=== PATIENT | female | born 1985 | race Caucasian/White ===

== ENCOUNTER 2018-10-26 10:00 | Inpatient (IN) | payer OTHER ==
[2018-10-26 17:12] VITALS: BMI 37.7
[2018-10-26] MEDS ORDERED: Misoprostol 200 MCG TAB PR PRN (17:21)
[2018-10-26] MEDS ORDERED: Ibuprofen 800 MG TAB PO PRN (17:21)
[2018-10-26] MEDS ORDERED: Lidocaine 1% (PF) 30 ML VIAL SC PRN (17:21)
[2018-10-26] MEDS ORDERED: Promethazine HCl 25 MG/ML VIAL IM PRN ×2 (17:21→22:27)
[2018-10-26] MEDS ORDERED: Methylergonovine 0.2 MG/ML VIAL IM PRN (17:21)
[2018-10-26] MEDS ORDERED: NS / Oxytocin 40 units/1000ml 1,000 ML IV PRN (17:21)
[2018-10-26] MEDS ORDERED: Carboprost 250 MCG/ML AMP IM PRN (17:21)
[2018-10-26] MEDS ORDERED: Ondansetron PF 4 MG/2 ML Vial IVP PRN ×2 (17:21→22:27)
[2018-10-26] MEDS ORDERED: Meperidine HCl/PF 25 MG/ML VIAL IM/IV PRN (17:21)
[2018-10-26] MEDS ORDERED: Butorphanol Tartrate 1 MG/ML VIAL SLOW IVP PRN (17:21)
[2018-10-26] MEDS ORDERED: HYDROcodone/Acetaminophen 5/325 mg Tablet PO PRN (17:21)
[2018-10-26] MEDS ORDERED: Acetaminophen 500 MG TAB PO PRN (17:21)
--- NOTE | 2018-10-26 17:27 | PDOC.LDHP ---
Labor and Delivery H&P Chief complaint: scheduled induction, other (Cholestasis of , started itching a few days ago, elevated LFT and bile acids (27) on 10/23, resulted today. Decision to induce labor for cholestasis at more than 37 weeks gestation. Cervix favorable.) HPI: Seen in office today for routine OB f/u. Had labs earlier this week for itching of palms and soles. LFT and bile acids elevated. Good movement reported. No jaundice noticed. Itching persists. Current gestational age (weeks): 37 Due date: 11/12/18 Dating criteria: last menstrual period Grav: 3 Para: 2 Current complications: other (Cholestasis of at 37 weeks) Abnormal US findings: No Current medications: pre- vitamins Previous surgical history: none Allergies/Adverse Reactions: Allergies Allergy/AdvReac Type Severity Reaction Status Date / Time No Known Allergies Allergy Verified 10/26/18 17:12 Social history: none - Physical Exam Vital signs reviewed and normal: yes General: NAD, resting, breathing through contractions, other Heart: RRR Lungs: nonlabored breathing Abdomen: NTTP Extremeties: no edema FHT: category 1 - Vaginal Exam cm dilated: 3 Effacement: 75% Station: -1 - OB Labs Blood type: O RH: positive Antibody Screen: negative HIV: negative RPR: negative HEPSAg: negative 1 hour GCT: negative GBS: negative Urine drug screen: not done Rubella: immune - Assessment L&D Assessment: medically indicated induction - Plan Plan: admit to L&D, anesthesia consult for pain management (Pitocin for IOL. WIll AROM when gregg. Continuous monitoring. Repeat LFT now and after delivery.)
[2018-10-26] MEDS ORDERED: NS w/ Oxytocin 10 units 500 ML IV SCH (17:30)
[2018-10-26 18:39] LABS: Hemoglobin 11.9 g/dL (12.0-16.0); Mean Corpuscular HGB CONC 34.3 g/dL (32.0-36.0); Mean Corpuscular Volume 87.5 fL (78.0-98.0); Mean Platelet Volume 8.8 fL (7.4-10.4); Platelet Count 193 thou/uL (130-400); RBC Distribution Width 12.4 % (11.5-14.5); Red Blood Cell (RBC) Count 3.97 mill/uL (4.20-5.40); White Blood Cell (WBC) Count 9.3 thou/uL (4.8-10.8)
[2018-10-26] MEDS: Lactated Ringer's 1,000 ML IV SCH (18:46)
[2018-10-26 19:10] LABS: ALT (SGPT) 90 U/L (8-55); AST (SGOT) 72 U/L (5-34); Albumin 3.1 g/dL (3.5-5.0); Alkaline Phosphatase 353 U/L (40-150); Anion Gap 10 mmol/L (10-20); BUN (Urea Nitrogen) 6 mg/dL (7.0-18.7); Bilirubin, Total 0.6 mg/dL (0.2-1.2); Calc. Creatinine Clearance 227 mL/min (70-130); Calcium 9.1 mg/dL (7.8-10.44); Carbon Dioxide 25 mmol/L (22-29); Chloride 105 mmol/L (98-107); Estimated GFR-MDRD Greater than 90; Globulin 3.1 g/dL (2.4-3.5); Glucose 85 mg/dL (70-105); Potassium 3.7 mmol/L (3.5-5.1); Protein, Total 6.2 g/dL (6.0-8.3); Sodium 136 mmol/L (136-145)
[2018-10-26 19:31] LABS: HBSAg Index 0.21 S/CO (0-0.99); Hep B Surf Ag Non-Reactive S/CO (NonReactive)
[2018-10-26 19:37] LABS: Syphilis Antibody Nonreactive (Nonreactive); Syphilis Antibody Index 0.05 S/CO (<1.00 Non-Reactive)
[2018-10-26] MEDS ORDERED: Fentanyl 4 mcg/Bup 0.1% Cadd 100 ML ONE (22:07)
[2018-10-26] MEDS ORDERED: Lidocaine 1.5%/Epinephrine 1:200,000 5 ML AMPUL IJ ONE (22:12)
[2018-10-26] MEDS ORDERED: ePHEDrine/0.9% NaCl/PF SYRINGE 50 mg/10 ml SLOW IVP PRN (22:27)
[2018-10-26] MEDS ORDERED: Naloxone HCl 0.4 mg/ml Vial IVP PRN ×2 (22:27)
[2018-10-26] MEDS ORDERED: Lactated Ringer's 500 ML IV PRN (22:27)
[2018-10-26] MEDS ORDERED: Eucerin (Mineral Oil/Petrolatum,White) 30 gm Jar TOP PRN (22:27)
[2018-10-26] MEDS ORDERED: Acetaminophen 325 MG TAB PO PRN (22:27)
[2018-10-26] MEDS ORDERED: diphenhydrAMINE 50 MG/ML VIAL IVP PRN (22:27)
[2018-10-26] MEDS ORDERED: Communication Order-Pharmacy FS SCH (22:30)
[2018-10-26] MEDS ORDERED: Fentanyl 4 mcg/Bupivacaine 0.1% Cassette 100 ML EPIDURAL SCH (22:30)
[2018-10-26] MEDS ORDERED: NS / Oxytocin 40 units/1000ml 1,000 ML ONE (22:43)
[2018-10-26] MEDS ORDERED: Lidocaine 1% (PF) 30 ML VIAL ONE (22:43)
[2018-10-27] MEDS ORDERED: NS / Oxytocin 40 units/1000ml 0 ML ONE (02:31)
[2018-10-27] MEDS ORDERED: Carboprost 250 MCG/ML AMP ONE (02:31)
[2018-10-27] MEDS ORDERED: Methylergonovine 0.2 MG/ML VIAL ONE (02:31)
[2018-10-27] MEDS ORDERED: Misoprostol 200 MCG TAB ONE (02:31)
[2018-10-27] MEDS ORDERED: HYDROcodone/Acetaminophen 5/325 mg Tablet PO PRN (03:33)
[2018-10-27] MEDS ORDERED: Bisacodyl 10 MG SUPP PR PRN (03:33)
[2018-10-27] MEDS ORDERED: NS / Oxytocin 40 units/1000ml 1,000 ML IV SCH (03:33)
[2018-10-27] MEDS ORDERED: Lanolin Ointment 7 GM TUBE TOP PRN (03:33)
[2018-10-27] MEDS ORDERED: Adacel (T-DAP) 0.5 ML SYRINGE IM ONE (03:33)
[2018-10-27] MEDS ORDERED: Milk Of Magnesia 30 ML UDCUP PO PRN (03:33)
--- NOTE | 2018-10-27 05:00 | DN ---
DATE OF PROCEDURE: 10/27/2018 PREOPERATIVE DIAGNOSIS: Term intrauterine , cholestasis of , meconium staining amniotic fluid. POSTOPERATIVE DIAGNOSIS: Term intrauterine , cholestasis of , meconium staining amniotic fluid as well as nuchal cord x 1. PROCEDURE PERFORMED: Normal spontaneous vaginal delivery. ANESTHESIA: Epidural. BRIEF DELIVERY SUMMARY: This is a 32-year-old G3, now P3, who presented for induction of labor secondary to cholestasis with elevated liver function and bile acids. She was given Pitocin and underwent artificial rupture of membranes, after which time she progressed well to complete and pushing. She delivered a live male head away. Mouth and nares were bulb suctioned at the perineum. There was a loose nuchal cord, which was easily reduced prior to delivery of the shoulders. Shoulders and body easily followed. After delayed cord clamping, cord was clamped and cut and the infant was taken to the warmer for suctioning due to a weak cry. Cord blood was collected and sent for analysis. Placenta was delivered spontaneously and intact. After delivery of the placenta, there was some vaginal bleeding from uterine atony. This resolved with bimanual massage and administration of Cytotec 800 mcg rectally. There were no lacerations. Mom and baby were left with the nurse in excellent condition. She is planning to breastfeed. Job ID: [id number]
[2018-10-27] MEDS: Docusate Calcium (SURFAK) 240 MG CAP PO SCH ×2 (10:00→21:49)
[2018-10-27] MEDS: Ferrous Sulfate 325 MG TAB PO SCH ×2 (10:00→19:28)
[2018-10-27] MEDS: Ibuprofen 800 MG TAB PO SCH ×3 (14:06→21:49)
[2018-10-27] MEDS: Lactated Ringer's 1,000 ML IV SCH (19:29)
[2018-10-28] MEDS: Ibuprofen 800 MG TAB PO SCH (05:18)
[2018-10-28 06:56] LABS: #Basophils 0.1 thou/uL (0.0-0.2); #Eosinphils 0.3 thou/uL (0.0-0.7); #Lymphocytes 3.6 thou/uL (1.20-3.40); #Monocytes 0.9 thou/uL (0.11-0.59); #Neutrophils 6.2 thou/uL (1.40-6.50); %Basophils 0.7 % (0.0-1.0); %Lymphocytes 32.2 % (21.0-51.0); %Monocytes 7.9 % (0.0-10.0); %Neutrophils 56.2 % (42.0-75.0); Hemoglobin 10.9 g/dL (12.0-16.0); Mean Corpuscular HGB CONC 33.6 g/dL (32.0-36.0); Mean Corpuscular Hemoglobin 30.1 pg (27.0-31.0); Mean Corpuscular Volume 89.5 fL (78.0-98.0); Mean Platelet Volume 7.9 fL (7.4-10.4); Platelet Count 233 thou/uL (130-400); RBC Distribution Width 12.2 % (11.5-14.5); Red Blood Cell (RBC) Count 3.61 mill/uL (4.20-5.40); White Blood Cell (WBC) Count 11.1 thou/uL (4.8-10.8)
[2018-10-28 07:13] LABS: ALT (SGPT) 60 U/L (8-55); AST (SGOT) 40 U/L (5-34); Albumin 2.6 g/dL (3.5-5.0); Alkaline Phosphatase 283 U/L (40-150); Anion Gap 10 mmol/L (10-20); BUN (Urea Nitrogen) 5 mg/dL (7.0-18.7); Bilirubin, Total 0.3 mg/dL (0.2-1.2); Calc. Creatinine Clearance 238 mL/min (70-130); Calcium 8.8 mg/dL (7.8-10.44); Carbon Dioxide 25 mmol/L (22-29); Chloride 105 mmol/L (98-107); Estimated GFR-MDRD Greater than 90; Globulin 3.1 g/dL (2.4-3.5); Glucose 78 mg/dL (70-105); Potassium 3.7 mmol/L (3.5-5.1); Protein, Total 5.7 g/dL (6.0-8.3); Sodium 136 mmol/L (136-145)
[2018-10-28 08:26] VITALS: BP 134/74; TEMP 97
[2018-10-28] MEDS: Ferrous Sulfate 325 MG TAB PO SCH (09:41)
[2018-10-28] MEDS: Docusate Calcium (SURFAK) 240 MG CAP PO SCH (09:42)
== END 2018-10-28 14:00 | disposition home or self-care (01) | DRG 805 ==
LOC: L&D 16:44 → 3SW 10-27 05:24
PROVIDERS: ADMIT Family Medicine; ATTEND Family Medicine
PROC: 3E033VJ Introduction of Other Hormone into Peripheral Vein, Percutaneous Approach (ICD-10-PCS; 2018-10-26)
PROC: 10E0XZZ Delivery of Products of Conception, External Approach (ICD-10-PCS; principal; 2018-10-27)
DX: O26.62 Liver and biliary tract disorders in childbirth (principal); K83.1 Obstruction of bile duct; O72.1 Other immediate postpartum hemorrhage; O69.81X0 Labor and delivery complicated by cord around neck, without compression, not applicable or unspecified; O77.0 Labor and delivery complicated by meconium in amniotic fluid; Z3A.37 37 weeks gestation of pregnancy; Z37.0 Single live birth
CPT/HCPCS: 36415; 51702; 80053; 85025; 85027; 86780; 86850; 86900; 86901; 87340; J2001; J2210; J3490

== ENCOUNTER 2020-11-25 12:59 | Emergency (ER) | payer OTHER ==
--- NOTE | 2020-11-25 14:08 | RAD ---
XR Chest 1 View Portable HISTORY: Chest pain and difficulty breathing COMPARISON: None FINDINGS: The heart size is normal. The lungs are well expanded without focal areas of consolidation, pneumothorax or pleural effusions. IMPRESSION: No radiographic evidence of acute cardiopulmonary process.
[2020-11-25 14:56] LABS: #Eosinphils 0.2 thou/uL (0.0-0.7); #Lymphocytes 2.6 thou/uL (1.20-3.40); #Monocytes 0.7 thou/uL (0.11-0.59); #Neutrophils 3.9 thou/uL (1.40-6.50); %Basophils 0.3 % (0.0-1.0); %Eosinophils 2.4 % (0.0-10.0); %Lymphocytes 35.7 % (21.0-51.0); %Monocytes 8.9 % (0.0-10.0); %Neutrophils 52.8 % (42.0-75.0); Hemoglobin 12.5 g/dL (12.0-16.0); Mean Corpuscular HGB CONC 33.8 g/dL (32.0-36.0); Mean Corpuscular Hemoglobin 30.4 pg (27.0-31.0); Mean Platelet Volume 6.5 fL (7.4-10.4); Platelet Count 259 thou/uL (130-400); RBC Distribution Width 11.6 % (11.5-14.5); Red Blood Cell (RBC) Count 4.13 mill/uL (4.20-5.40); White Blood Cell (WBC) Count 7.4 thou/uL (4.8-10.8)
[2020-11-25 15:20] LABS: ALT (SGPT) 23 U/L (8-55); AST (SGOT) 16 U/L (5-34); Alkaline Phosphatase 86 U/L (40-110); Anion Gap 12 mmol/L (10-20); BUN (Urea Nitrogen) 14 mg/dL (7.0-18.7); Bilirubin, Total 0.3 mg/dL (0.2-1.2); CK (CPK) 45 U/L (29-168); Calc. Creatinine Clearance 0 mL/min (70-130); Calcium 8.7 mg/dL (7.8-10.44); Carbon Dioxide 28 mmol/L (22-29); Chloride 103 mmol/L (98-107); Globulin 3.2 g/dL (2.4-3.5); Glucose 90 mg/dL (70-105); Potassium 4.2 mmol/L (3.5-5.1); Protein, Total 7.2 g/dL (6.0-8.3); Sodium 139 mmol/L (136-145)
== END 2020-11-25 16:42 | disposition home or self-care (01) ==
LOC: ERS 12:59
DX: U07.1 COVID-19 (principal)
CPT/HCPCS: 36415; 71045; 80053; 82550; 84484; 85025; 93005

== ENCOUNTER 2021-11-06 16:54 | Emergency (ER) | payer OTHER ==
[2021-11-06 17:42] LABS: #Basophils 0.1 thou/uL (0.0-0.2); #Eosinphils 0.3 thou/uL (0.0-0.7); #Lymphocytes 2.8 thou/uL (1.20-3.40); #Monocytes 0.7 thou/uL (0.11-0.59); %Basophils 1.4 % (0.0-1.0); %Eosinophils 4.1 % (0.0-10.0); %Lymphocytes 35.4 % (21.0-51.0); %Monocytes 8.5 % (0.0-10.0); %Neutrophils 50.6 % (42.0-75.0); Hemoglobin 13.5 g/dL (12.0-16.0); Mean Corpuscular HGB CONC 34.6 g/dL (32.0-36.0); Mean Corpuscular Hemoglobin 31.7 pg (27.0-31.0); Mean Corpuscular Volume 91.6 fL (78.0-98.0); Mean Platelet Volume 6.6 fL (7.4-10.4); Platelet Count 304 thou/uL (130-400); RBC Distribution Width 11.6 % (11.5-14.5); Red Blood Cell (RBC) Count 4.26 mill/uL (4.20-5.40); White Blood Cell (WBC) Count 7.9 thou/uL (4.8-10.8)
[2021-11-06 17:59] LABS: ALT (SGPT) 27 U/L (8-55); AST (SGOT) 19 U/L (5-34); Albumin 4.1 g/dL (3.5-5.0); Alkaline Phosphatase 67 U/L (40-110); Anion Gap 11 mmol/L (10-20); BUN (Urea Nitrogen) 11 mg/dL (7.0-18.7); Bilirubin, Total 0.3 mg/dL (0.2-1.2); Calc. Creatinine Clearance 0 mL/min (70-130); Calcium 9.3 mg/dL (7.8-10.44); Carbon Dioxide 25 mmol/L (22-29); Chloride 106 mmol/L (98-107); Globulin 3.1 g/dL (2.4-3.5); Glucose 100 mg/dL (70-105); Potassium 4.3 mmol/L (3.5-5.1); Protein, Total 7.2 g/dL (6.0-8.3); Sodium 138 mmol/L (136-145)
== END 2021-11-06 18:43 | disposition home or self-care (01) ==
LOC: ERS 16:54
DX: R00.2 Palpitations (principal)
CPT/HCPCS: 36415; 71045; 80053; 83880; 84484; 85025; 93005

== ENCOUNTER 2022-01-05 12:11 | Outpatient (CLI) | payer BC | END 2022-01-05 12:12 | disposition home or self-care (01) | LOC: BICRAD 12:11 | PROVIDERS: ATTEND Physician Assistant | DX: M54.41 Lumbago with sciatica, right side (principal); M47.816 Spondylosis without myelopathy or radiculopathy, lumbar region | CPT/HCPCS: 72100 ==

== ENCOUNTER 2022-06-09 14:22 | Emergency (ER) | payer BC, MEDICAID ==
[2022-06-09 14:54] LABS: Mean Corpuscular HGB CONC 33.9 g/dL (32.0-36.0); Mean Corpuscular Hemoglobin 31.1 pg (27.0-31.0); Mean Corpuscular Volume 91.9 fL (78.0-98.0); Mean Platelet Volume 7.4 fL (7.4-10.4); Platelet Count 268 thou/uL (130-400); RBC Distribution Width 12.4 % (11.5-14.5); Red Blood Cell (RBC) Count 4.17 mill/uL (4.20-5.40)
[2022-06-09 15:08] LABS: ALT (SGPT) 51 U/L (8-55); AST (SGOT) 35 U/L (5-34); Albumin 3.9 g/dL (3.5-5.0); Alkaline Phosphatase 95 U/L (40-110); Anion Gap 15 mmol/L (10-20); BUN (Urea Nitrogen) 8 mg/dL (7.0-18.7); Bilirubin, Total 0.8 mg/dL (0.2-1.2); Calc. Creatinine Clearance 0 mL/min (70-130); Calcium 9.5 mg/dL (7.8-10.44); Carbon Dioxide 24 mmol/L (22-29); Chloride 103 mmol/L (98-107); Estimated GFR 119; Globulin 3.5 g/dL (2.4-3.5); Glucose 92 mg/dL (70-105); Lipase 12 U/L (8-78); Potassium 4.1 mmol/L (3.5-5.1); Protein, Total 7.4 g/dL (6.0-8.3); Sodium 138 mmol/L (136-145)
[2022-06-09 15:25] LABS: Band 3 % (5-11); Eosinophils 1 % (0-10); Lymphocytes 9 % (21-51); MDiff Complete? YES; Monocytes 3 % (0-10); Neutrophil 73 % (42-75); Platelet Morphology Comment Appears Adequate; RBC Morphology Normal; Reactive Lymphocytes 11 % (0-10)
[2022-06-09] MEDS ORDERED: Metoclopramide HCl 10 MG/2 ML VIAL ONE (16:42)
[2022-06-09] MEDS ORDERED: diphenhydrAMINE 50 MG/ML VIAL ONE (17:46)
[2022-06-09 17:53] LABS: Bilirubin 1+ (Negative); Blood, Urine Negative (Negative); Clarity Clear (Clear); Glucose, Urine (Dipstick) Normal (Negative); Ketone, Urine 100 mg/dL (Negative); Leukocyte Negative Leu/uL (Negative); Nitrite Negative (Negative); Protein, Urine (Dipstick) 50 mg/dL (Neg-Trace); RBC/HPF 0-3 HPF (0-3); Specific Gravity, Urine 1.026 (1.002-1.036); Squamous Epithelial 0-3 HPF (0-3); WBC/HPF 0-3 HPF (0-3)
[2022-06-09 17:54] LABS: Bacteria/HPF 1+ HPF (None Seen)
== END 2022-06-09 19:08 | disposition home or self-care (01) ==
LOC: ERS 14:22
DX: O21.9 Vomiting of pregnancy, unspecified (principal); Z3A.16 16 weeks gestation of pregnancy
CPT/HCPCS: 36415; 76815; 80053; 81003; 81015; 83690; 84702; 85025; 96365; 96375; J1200; J2765